=== PATIENT | female | born 1970 | race Caucasian/White ===

== ENCOUNTER 2018-12-04 15:09 | Emergency (ER) | payer BC ==
--- NOTE | 2018-12-04 16:22 | RAD REPORT ---
EXAM DESCRIPTION: RAD - Ankle Right 3 View - 12/04/2018 4:05 pm CLINICAL HISTORY: Trip and fall, ankle pain COMPARISON: None. FINDINGS: No fracture, dislocation or periosteal reaction. No joint effusion seen. No joint space na rrowing. Small plantar spur is present. Lateral soft tissue swelling is evident. IMPRESSION: Right ankle lateral soft tissue swelling without fracture.
--- NOTE | 2018-12-04 16:31 | EDPHYS ---
Physician Documentation [facility] Name: Arleen Baker Age: 48 yrs Sex: Female : 1970 Arrival Date: 12/04/2018 Time: 15:16 Bed 19 Private MD: None, None ED Physician Olvin Russo HPI: 12/04 15:48 This 48 yrs old Female presents to ER via Wheelchair with complaints of Ankle cp Injury. 15:48 The patient presents with an injury, pain, that is acute. The complaints affect the cp right ankle. Onset: The symptoms/episode began/occurred 3 week(s) ago. 15:48 Associated signs and symptoms: Pertinent negatives: calf tenderness, fever, numbness, cp weakness. 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 - Social history:: Smoking status: Patient/guardian denies using tobacco. - Ebola Screening: : No symptoms or risks identified at this time. ROS: 15:55 Constitutional: Negative for body aches, chills, fever, poor PO intake. cp 15:55 Eyes: Negative for injury, pain, redness, and discharge. cp 15:55 Cardiovascular: Negative for chest pain, edema. 15:55 Respiratory: Negative for cough, shortness of breath, wheezing. 15:55 MS/extremity: Positive for pain, swelling, tenderness, of the lateral malleolus right ankle, Negative for deformity, paresthesias. 15:55 Skin: Negative for cellulitis, rash. 15:55 All other systems are negative. Exam: 16:00 Constitutional: The patient appears in no acute distress, alert, awake, well developed, cp well nourished. 16:00 Head/Face: Normocephalic, atraumatic. cp 16:00 Eyes: Periorbital structures: appear normal, Conjunctiva: normal, no exudate, no injection, Lids and lashes: appear normal, bilaterally. 16:00 ENT: External ear(s): are unremarkable, Nose: is normal, Posterior pharynx: is normal, airway is patent. 16:00 Chest/axilla: Inspection: normal. 16:00 Cardiovascular: Rate: normal. 16:00 Respiratory: the patient does not display signs of respiratory distress, Respirations: normal. 16:00 Abdomen/GI: Exam negative for discomfort, distension, guarding, Inspection: abdomen appears normal. 16:00 Musculoskeletal/extremity: Extremities: grossly normal except: noted in the lateral malleolus of right ankle: swelling, tenderness, There is no evidence of decreased ROM, deformity, Perfusion: the extremity is normally perfused throughout, Sensation intact. Achilles tendon palpated and intact, no pain noted proximal fibula or base of fifth metatarsal. 16:00 Skin: cellulitis, is not appreciated, no rash present. Vital Signs: 15:33 BP 128 / 62; Pulse 78; Resp 18; Temp 98.1; Pulse Ox 98% on R/A; Weight 99.79 kg; Height ca1 5 ft. 4 in. (162.56 cm); Pain 6/10; 15:33 Body Mass Index 37.76 (99.79 kg, 162.56 cm) ca1 Procedures: 16:30 Splinting: Splint applied to right ankle using Air Cast, applied by nurse. Examined by cp me, post splint application: neurovascular intact, Patient tolerated well. MDM: 15:38 Patient medically screened. cp 16:00 Differential diagnosis: fracture, sprain, dislocation. cp 16:30 Data reviewed: vital signs, nurses notes, radiologic studies, plain films, and as a cp result, I will discharge patient. 16:30 Counseling: I had a detailed discussion with the patient and/or guardian regarding: the cp historical points, exam findings, and any diagnostic results supporting the discharge/admit diagnosis, radiology results, the need for outpatient follow up, a orthopedic surgeon, to return to the emergency department if symptoms worsen or persist or if there are any questions or concerns that arise at home. 16:30 Response to treatment: the patient's symptoms have mildly improved after treatment. 12/04 15:48 Order name: XRAY Ankle RIGHT 3 view; Complete Time: 16:27 cp 12/04 16:28 Interpretation: Report reviewed. 12/04 16:22 Order name: Aircast Ankle Splint; Complete Time: 16:39 cp Administered Medications: No medications were administered Disposition: 18:29 Co-signature as Attending Physician, Olvin Russo MD. rn Disposition: 12/04/18 16:31 Discharged to Home. Impression: Sprain of ankle - Right. - Condition is Stable. - Discharge Instructions: Ankle Sprain. - Prescriptions for Ibuprofen 800 mg Oral Tablet - take 1 tablet by ORAL route every 8 hours As needed take with food; 30 tablet. - Medication Reconciliation Form, Thank You Letter, Antibiotic Education, Prescription Opioid Use form. - Follow up: Yoan Gregory MD; When: 2 - 3 days; Reason: Recheck today's complaints. - Problem is new. - Symptoms have improved. Signatures: Dispatcher [employer] EDMS Olvin Russo MD MD rn Vaughn Avendaño PA PA cp Peltier, Brian, RN RN Lynette Johnson RN RN ca1 Corrections: (The following items were deleted from the chart) 16:55 16:31 12/04/2018 16:31 Discharged to Home. Impression: Sprain of ankle - Right. bp Condition is Stable. Forms are Medication Reconciliation Form, Thank You Letter, Antibiotic Education, Prescription Opioid Use. Follow up: Yoan Gregory; When: 2 - 3 days; Reason: Recheck today's complaints. Problem is new. Symptoms have improved. cp
--- NOTE | 2018-12-04 16:31 | ER ---
Nurse's Notes [facility] Name: Arleen Baker Age: 48 yrs Sex: Female : 1970 Arrival Date: 12/04/2018 Time: 15:16 Bed 19 Private MD: None, None Diagnosis: Sprain of ankle-Right Presentation: 12/04 15:26 Presenting complaint: Patient states: she had a right ankle injury, fell on a curb and ca1 bent it from the inside 24 days ago while on vacation in [place]. No consultation done here in the [place]. Persistent pain and impaired mobility prompted visit to the ER. Transition of care: patient was not received from another setting of care. Onset of symptoms was November 11, 2018. Risk Assessment: Do you want to hurt yourself or someone else? Patient reports no desire to harm self or others. Initial Sepsis Screen: Does the patient meet any 2 criteria? No. Patient's initial sepsis screen is negative. Does the patient have a suspected source of infection? No. Patient's initial sepsis screen is negative. Care prior to arrival: None. 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 - Social history:: Smoking status: Patient/guardian denies using tobacco. - Ebola Screening: : No symptoms or risks identified at this time. Screenin:52 Abuse screen: Denies threats or abuse. Denies injuries from another. Nutritional bp screening: No deficits noted. Tuberculosis screening: No symptoms or risk factors identified. Fall Risk None identified. Assessment: 15:45 General: Appears in no apparent distress. comfortable, obese, Behavior is cooperative, bp appropriate for age, anxious. Pain: Complains of pain in right ankle. Neuro: Level of Consciousness is awake, alert, obeys commands, Oriented to person, place, time, situation, Appropriate for age. Cardiovascular: No deficits noted. Respiratory: Airway is patent Respiratory effort is even, unlabored, Respiratory pattern is regular, symmetrical. GI: No signs and/or symptoms were reported involving the gastrointestinal system. : No signs and/or symptoms were reported regarding the genitourinary system. EENT: No deficits noted. Derm: No deficits noted. Musculoskeletal: Circulation, motion, and sensation intact. Range of motion: intact in all extremities. 16:54 Reassessment: PT D/C HOME AMBULATORY, DX WITH ANKLE SPRAIN. bp Vital Signs: 15:33 BP 128 / 62; Pulse 78; Resp 18; Temp 98.1; Pulse Ox 98% on R/A; Weight 99.79 kg; Height ca1 5 ft. 4 in. (162.56 cm); Pain 6/10; 15:33 Body Mass Index 37.76 (99.79 kg, 162.56 cm) ca1 ED Course: 15:16 Patient arrived in ED. mr 15:16 None, None is Private Physician. mr 15:31 Triage completed. ca1 15:33 Arm band placed on right wrist. ca1 15:36 Martell Hebert, HORACIO is Primary Nurse. bp 15:38 Vaughn Avendaño PA is PHCP. cp 15:38 Olvin Russo MD is Attending Physician. cp 15:52 Patient has correct armband on for positive identification. Bed in low position. Call bp light in reach. Side rails up X2. 16:04 X-ray completed. Portable x-ray completed in exam room. Patient tolerated procedure sg4 well. 16:06 XRAY Ankle RIGHT 3 view In Process Unspecified. EDMS 16:30 Yoan Gregory MD is Referral Physician. cp 16:[address] [facility] 16:55 No provider procedures requiring assistance completed. Patient did not have IV access bp during this emergency room visit. Administered Medications: No medications were administered Outcome: 16:31 Discharge ordered by MD. cp 16:55 Discharged to home ambulatory. bp 16:55 Condition: stable 16:55 Discharge instructions given to patient, Instructed on discharge instructions, follow up and referral plans. medication usage, Demonstrated understanding of instructions, follow-up care, medications, Prescriptions given X 1. 16:55 Patient left the ED. bp Signatures: Dispatcher [employer] EDWI Marin Shruti mr Vaughn Avendaño PA PA Anushka Ferrari 5 Martell Hebert, RN RN Thalia Schwab sg4 Lynette Olivas RN RN ca1 Corrections: (The following items were deleted from the chart) 15:31 15:26 Acuity: RAYNE 5 ca1 ca1
== END 2018-12-04 16:55 | disposition home or self-care (01) ==
LOC: ER 15:09
DX: S93.401A Sprain of unspecified ligament of right ankle, initial encounter (principal); W18.39XA Other fall on same level, initial encounter; Y93.89 Activity, other specified; Y92.89 Other specified places as the place of occurrence of the external cause
CPT/HCPCS: 99283